=== PATIENT | male | born 1950 | race Caucasian/White ===

== ENCOUNTER 2017-04-28 21:18 | Inpatient (IN) | payer BC, MEDICARE ==
[~2017-04-28] VITALS: Ht 167.6 cm; Wt 83.4 kg
[~2017-04-28 21:18] MED LIST: ASPIRIN E.C. 8181 MG PO; CLARITIN 1010 MG/TAB PO; GLUCOSAMINE CHO1 CAP PO; LIPITOR 10MG10 MG PO
[2017-04-28 22:12] LABS: BASO % 0.3 % (0.0-2.0); EOS # 0.1 (0.0-0.7); EOS % 0.8 % (0-4.0); GRAN # 9.3 (1.4-6.5); GRAN % 77.2 % (42.2-75.2); HEMATOCRIT 40.6 % (42.0-52.0); HEMOGLOBIN 13.5 g/dl (13.5-18.0); LYMPH # 1.5 (1.2-3.4); LYMPH % 12.8 % (20.0-51.0); MEAN CELL VOLUME 92 fl (80.0-100.0); MEAN CORPUSCULAR HEMOGLOBIN 31 pg (27.0-31.0); MEAN CORPUSCULAR HGB CONC 33 g/dl (33.0-37.0); MEAN PLATELET VOLUME 9.7 fl (7.4-10.4); MONO % 8.6 % (1.7-9.3); PLATELET COUNT 273 K/mm3 (130-400); REDCELL DISTRIBUTION WIDTH-CV 12.2 % (11.5-14.5)
[2017-04-28 22:21] LABS: ADJUSTED CALCIUM 9.7 mg/dL (8.4-10.2); ALBUMIN 4.3 gm/dL (3.5-5.0); BILIRUBIN,TOTAL 0.9 mg/dL (0.0-1.0); CALCIUM 9.9 mg/dL (8.4-10.2); CREATININE, serum 0.8 mg/dL (0.66-1.25); POTASSIUM 4.1 mmol/L (3.4-5.0); TOTAL PROTEIN 7.9 gm/dL (6.4-8.2)
[2017-04-28 23:22] VITALS: BP 155/79; PULSE 82; TEMP 99
[2017-04-28 23:30] LABS: PH 6 (5-8); SQUAMOUS EPITHELIAL None Seen /hpf; URINE APPEARANCE Clear; URINE BACTERIA None Seen /hpf; URINE BILIRUBIN Negative (NEGATIVE); URINE BLOOD Negative (NEGATIVE); URINE COLOR Straw; URINE GLUCOSE Negative (NEGATIVE); URINE KETONE Negative (NEGATIVE); URINE RBC 0-2 /hpf; URINE UROBILINOGEN Negative (NEGATIVE); URINE WBC 0-2 /hpf
[2017-04-28] MEDS ORDERED: FLOMAX 0.40.4 MG/CAP PO (23:45)
[2017-04-28] MEDS ORDERED: OCUVITE1 TA1 PO (23:46)
[2017-04-28] MEDS ORDERED: MOBIC15 MG PO (23:47)
[2017-04-28] MEDS ORDERED: ZESTRIL 10MG10 MG PO (23:48)
[2017-04-29 03:44] VITALS: BP 135/73; PULSE 78; TEMP 98.5
[2017-04-29 08:14] VITALS: BP 152/81; PULSE 90; TEMP 98.4
[2017-04-29 11:32] VITALS: BP 159/78; PULSE 96; TEMP 99.2
[2017-04-29 15:18] VITALS: BP 152/74; PULSE 89; TEMP 98
[2017-04-29 20:35] VITALS: BP 163/77; PULSE 86; TEMP 100
[2017-04-30] VITALS (7 sets, daily range): BP systolic 126–166; BP diastolic 61–69; PULSE 73–81; TEMP 98–100.3
[2017-04-30 06:58] LABS: BASO % 0.3 % (0.0-2.0); EOS # 0.1 (0.0-0.7); EOS % 0.7 % (0-4.0); GRAN # 8.4 (1.4-6.5); GRAN % 79.8 % (42.2-75.2); LYMPH # 1.2 (1.2-3.4); LYMPH % 11.3 % (20.0-51.0); MEAN CELL VOLUME 94 fl (80.0-100.0); MEAN CORPUSCULAR HGB CONC 33 g/dl (33.0-37.0); MEAN PLATELET VOLUME 9.6 fl (7.4-10.4); MONO # 0.8 (0.1-0.6); MONO % 7.3 % (1.7-9.3); PLATELET COUNT 275 K/mm3 (130-400); RED BLOOD COUNT 3.74 M/mm3 (4.20-5.60); REDCELL DISTRIBUTION WIDTH-CV 12.3 % (11.5-14.5); WHITE BLOOD COUNT 10.6 K/mm3 (4.8-10.8)
[2017-04-30 06:59] LABS: HEMATOCRIT 35.1 % (42.0-52.0); HEMOGLOBIN 11.4 g/dl (13.5-18.0); MEAN CORPUSCULAR HEMOGLOBIN 30 pg (27.0-31.0)
[2017-04-30 07:16] LABS: ADJUSTED CALCIUM 8.8 mg/dL (8.4-10.2); ALBUMIN 3.5 gm/dL (3.5-5.0); BILIRUBIN,TOTAL 1.2 mg/dL (0.0-1.0); CALCIUM 8.4 mg/dL (8.4-10.2); CREATININE, serum 0.82 mg/dL (0.66-1.25); POTASSIUM 3.8 mmol/L (3.4-5.0); TOTAL PROTEIN 6.6 gm/dL (6.4-8.2)
[2017-05-01] VITALS: BP 148/75; PULSE 79; TEMP 97.9
[2017-05-01 03:59] VITALS: BP 142/78; PULSE 79; TEMP 98.7
[2017-05-01 08:01] VITALS: BP 170/75; PULSE 70; TEMP 98.1
[2017-05-01 11:05] LABS: ADJUSTED CALCIUM 9.3 mg/dL (8.4-10.2); BILIRUBIN,TOTAL 0.9 mg/dL (0.0-1.0); CALCIUM 9.3 mg/dL (8.4-10.2); CREATININE, serum 0.75 mg/dL (0.66-1.25); POTASSIUM 3.3 mmol/L (3.4-5.0); TOTAL PROTEIN 7.6 gm/dL (6.4-8.2)
[2017-05-01 11:50] VITALS: BP 155/74; PULSE 87; TEMP 97.8
[2017-05-01 14:36] VITALS: BP 155/74; PULSE 87; TEMP 97.8
== END 2017-05-01 16:15 | disposition home or self-care (01) | DRG 440 ==
LOC: COL.ER 21:18 → MEDICAL 23:02
PROVIDERS: Family Medicine; Internal Medicine; Nurse Practitioner Family
DX: K85.90 Acute pancreatitis without necrosis or infection, unspecified (principal); I10 Essential (primary) hypertension; K59.00 Constipation, unspecified; Z87.891 Personal history of nicotine dependence
CPT/HCPCS: 99222-AI; 99233-AI; 99239; J1170; J1650; J2405; J7030; J7120; Q9967

== ENCOUNTER → 2018-02-22 | Outpatient (CLI) | payer BC ==
[~2018-02-22] MED LIST changes: +FLOMAX 0.40.4 MG/CAP PO; +MOBIC15 MG PO; +OCUVITE1 TA1 PO; +ZESTRIL 10MG10 MG PO
== END ==
LOC: COL.RAD 12:30
DX: M48.061 Spinal stenosis, lumbar region without neurogenic claudication (principal); M51.36 Other intervertebral disc degeneration, lumbar region; M99.73 Connective tissue and disc stenosis of intervertebral foramina of lumbar region; M47.816 Spondylosis without myelopathy or radiculopathy, lumbar region; M41.86 Other forms of scoliosis, lumbar region

== ENCOUNTER 2020-04-16 10:48 | Inpatient (IN) | payer MEDICARE, OTHER ==
[2020-04-16] VITALS (139 sets, daily range): BP systolic 102–167; BP diastolic 50–93; PULSE 50–67; TEMP 98.7–98.8; O2SAT 88–99
[~2020-04-16] VITALS: Ht 167.6 cm; Wt 80.2 kg
[2020-04-16] MEDS ORDERED: ZYRTEC 10MG10 MG PO (11:02)
[2020-04-16 11:32] LABS: BASO % 0.4 % (0.0-2.0); EOS # 0.1 (0.0-0.7); EOS % 1.2 % (0-4.0); GRAN # 4.4 (1.4-6.5); GRAN % 66.4 % (42.2-75.2); HEMATOCRIT 45.7 % (42.0-52.0); HEMOGLOBIN 14.9 g/dl (13.5-18.0); LYMPH # 1.7 (1.2-3.4); LYMPH % 25.3 % (20.0-51.0); MEAN CELL VOLUME 93 fl (80.0-100.0); MEAN CORPUSCULAR HEMOGLOBIN 30 pg (27.0-31.0); MEAN CORPUSCULAR HGB CONC 33 g/dl (33.0-37.0); MEAN PLATELET VOLUME 9.7 fl (7.4-10.4); MONO # 0.4 (0.1-0.6); MONO % 6.3 % (1.7-9.3); PLATELET COUNT 269 K/mm3 (130-400); REDCELL DISTRIBUTION WIDTH-CV 12.6 % (11.5-14.5)
[2020-04-16 11:54] LABS: ALBUMIN 4.8 gm/dL (3.5-5.0); BILIRUBIN,TOTAL 0.6 mg/dL (0.0-1.0); CALCIUM 9.8 mg/dL (8.4-10.2); CREATININE, serum 0.95 (0.66-1.25); POTASSIUM 4.3 mmol/L (3.4-5.0); TOTAL PROTEIN 8.6 gm/dL (6.4-8.2)
[2020-04-16 12:15] LABS: TROPONIN-I 0.051 ng/mL (0.000-0.035)
[2020-04-16] MEDS ORDERED: PRAVACHOL80 MG PO (16:41)
[2020-04-16] MEDS ORDERED: PRINIVIL40 MG PO (16:41)
[2020-04-16] MEDS ORDERED: FLONASE NASAL S16 GM NS (16:42)
[2020-04-17] VITALS (487 sets, daily range): BP systolic 110–153; BP diastolic 53–93; PULSE 50–76; TEMP 97.5–98.7; O2SAT 94–100
[2020-04-17 06:02] LABS: BASO % 0.3 % (0.0-2.0); EOS # 0.1 (0.0-0.7); EOS % 1.4 % (0-4.0); GRAN # 4.9 (1.4-6.5); GRAN % 68.8 % (42.2-75.2); HEMATOCRIT 42.2 % (42.0-52.0); HEMOGLOBIN 13.4 g/dl (13.5-18.0); LYMPH # 1.6 (1.2-3.4); MEAN CELL VOLUME 96 fl (80.0-100.0); MEAN CORPUSCULAR HEMOGLOBIN 31 pg (27.0-31.0); MEAN CORPUSCULAR HGB CONC 32 g/dl (33.0-37.0); MEAN PLATELET VOLUME 9.8 fl (7.4-10.4); MONO # 0.5 (0.1-0.6); MONO % 6.9 % (1.7-9.3); PLATELET COUNT 238 K/mm3 (130-400); REDCELL DISTRIBUTION WIDTH-CV 12.9 % (11.5-14.5)
[2020-04-17 06:12] LABS: CALCIUM 8.5 mg/dL (8.4-10.2); CHOLESTEROL RISK RATIO 6.2; CREATININE, serum 0.9 (0.66-1.25); POTASSIUM 4.2 mmol/L (3.4-5.0)
[2020-04-17 06:23] LABS: TROPONIN-I 0.014 ng/mL (0.000-0.035)
[2020-04-18] VITALS (522 sets, daily range): BP systolic 126–175; BP diastolic 78–97; PULSE 52–63; TEMP 97.8–98.2; O2SAT 89–99
[2020-04-18] MEDS ORDERED: BRILINTA90 MG PO (09:40)
[2020-04-18] MEDS ORDERED: LIPITOR 40MG TA40 MG PO (09:40)
[2020-04-18] MEDS ORDERED: NITROSTAT0.4 MG/TAB SL (09:41)
[2020-04-18] MEDS ORDERED: TOPROL XL 25MG25 MG PO (09:41)
[2020-04-18] MEDS ORDERED: HCTZ 25MG TAB25 MG PO (11:00)
== END 2020-04-18 11:44 | disposition home or self-care (01) | DRG 247 ==
LOC: COL.ER 10:48 → ICU 12:31 → COL.ER 12:31 → ICU 12:31
PROVIDERS: Emergency Medicine; Physician Assistant; ADMIT Hospitalist
PROC: 027034Z Dilation of Coronary Artery, One Artery with Drug-eluting Intraluminal Device, Percutaneous Approach (ICD-10-PCS; principal; 2020-04-17)
PROC: 4A023N7 Measurement of Cardiac Sampling and Pressure, Left Heart, Percutaneous Approach (ICD-10-PCS; 2020-04-17)
PROC: B2111ZZ Fluoroscopy of Multiple Coronary Arteries using Low Osmolar Contrast (ICD-10-PCS; 2020-04-17)
DX: I21.4 Non-ST elevation (NSTEMI) myocardial infarction (principal); I25.10 Atherosclerotic heart disease of native coronary artery without angina pectoris; I10 Essential (primary) hypertension; E78.5 Hyperlipidemia, unspecified; N40.0 Benign prostatic hyperplasia without lower urinary tract symptoms; G47.33 Obstructive sleep apnea (adult) (pediatric); Z87.891 Personal history of nicotine dependence
CPT/HCPCS: 99232-AI; 99239; C1725; C1769; C1874; C1887; C9600; J1644; J1650; J2250; J3010; J7030; Q9967

== ENCOUNTER 2024-06-01 08:00 | Outpatient (RCR) | payer MEDICARE, OTHER ==
[~2024-06-01 08:00] MED LIST changes: +BRILINTA90 MG PO; +FLONASE NASAL S16 GM NS; +HCTZ 25MG TAB25 MG PO; +LIPITOR 40MG TA40 MG PO; +NITROSTAT0.4 MG/TAB SL; +PRAVACHOL80 MG PO; +PRINIVIL40 MG PO; +TOPROL XL 25MG25 MG PO; +ZYRTEC 10MG10 MG PO
== END 2024-06-19 | disposition home or self-care (01) ==
LOC: WSST
DX: R13.19 Other dysphagia (principal)